=== PATIENT | female | born 1995 | race Caucasian/White ===

== ENCOUNTER 2016-06-26 10:18 | Emergency (ER) | payer MEDICAID ==
[~2016-06-26] VITALS: Wt 56.0 kg
[~2016-06-26 10:18] MED LIST: IBUP100T6 PO
[2016-06-26 11:26] LABS: ADD UMIC YES; URINE BILIRUBIN (Dip) NEGATIVE (NEGATIVE); URINE BLOOD (Dip) NEGATIVE (NEGATIVE); URINE COLOR LT. YELLOW (YELLOW); URINE GLUCOSE (Dip) NEGATIVE (NEGATIVE); URINE KETONES (Dip) TRACE (NEGATIVE); URINE LEUKOCYTE ESTERASE (Dip) TRACE (NEGATIVE); URINE NITRITE (Dip) NEGATIVE (NEGATIVE); URINE TOTAL PROTEIN (Dip) NEGATIVE (NEGATIVE); URINE UROBILINOGEN (Dip) 0.2 E.U./dL (0.1-1.0)
[2016-06-26 11:28] LABS: BASOPHILS % 0.4 % (0.0-2.0); EOSINOPHILS # 0.1 10^3/ul (0.0-0.5); EOSINOPHILS % 0.7 % (0.0-7.0); HEMATOCRIT 41.5 % (37.0-47.0); HEMOGLOBIN 14.1 g/dl (12.0-16.0); LYMPHOCYTES # 1.6 10^3/ul (0.8-2.9); LYMPHOCYTES % 21.1 % (18.0-55.0); MEAN CORPUSCULAR HEMOGLOBIN 30.3 pg (29.0-33.0); MEAN CORPUSCULAR HGB CONC 33.9 g/dl (32.0-37.0); MEAN CORPUSCULAR VOLUME 89.3 fl (72.0-104.0); MEAN PLATELET VOLUME 10.6 fl (7.4-10.4); MONOCYTE # 0.7 10^3/ul (0.3-0.9); MONOCYTES % 9.8 % (0.0-13.0); PLATELET COUNT 195 10^3/UL (140-440); RED BLOOD COUNT 4.65 10^6/ul (4.20-5.40); RED CELL DISTRIBUTION WIDTH 12.9 % (11.5-14.5); UNCORRECTED WBC 7.4 10^3/ul (4.8-10.8); WHITE BLOOD COUNT 7.4 10^3/ul (4.8-10.8)
[2016-06-26 11:29] LABS: CONDITION 1
--- NOTE | 2016-06-26 11:29 | ERD ---
ER Documentation Chief Complaint Date/Time DATE: 06/26/16 TIME: 11:26 Chief Complaint intermittent pelvic pain, 10wks preg HPI This is a 20-year-old female who presents to the emergency department today after being referred here by her [facility] for possible ectopic . Patient states she is approximately [address] Zacarias and stated that she had an ultrasound today and was told that she had a cyst and that could possibly be an ectopic . Denies any vaginal bleeding. Denies any fevers or chills. States she has mild intermittent pain. States she has some nausea but no vomiting. ROS All systems reviewed and are negative except as per history of present illness. Medications Home Meds Active Scripts Ondansetron Hcl* (Zofran*) 4 Mg Tablet, 4 MG PO Q6H for NAUSEA AND/OR VOMITING, #30 TAB Prov:MANUEL POE PA-C 06/26/16 Acetaminophen* (Tylophen*) 500 Mg Capsule, 1 CAP PO Q6H Y for PAIN AND OR ELEVATED TEMP, #30 CAP Prov:MANUEL POE PA-C 06/26/16 Reported Medications Ibuprofen (Advil) 100 Mg Tab.chew, 500 MG PO 12/22/11 Allergies Allergies: Coded Allergies: No Known Allergy (Unverified , 12/24/11) PMhx/Soc History of Surgery: Yes (APPENDIX) Anesthesia Reaction: No Hx Neurological Disorder: No Hx Respiratory Disorders: No Hx Cardiac Disorders: No Hx Psychiatric Problems: No Hx Miscellaneous Medical Probl: No Hx Alcohol Use: No Hx Substance Use: No Hx Tobacco Use: No Smoking Status: Never smoker Physical Exam Vitals Vital Signs Date Time Temp Pulse Resp B/P Pulse Ox O2 Delivery O2 Flow Rate FiO2 06/26/16 10:20 98.0 75 20 133/79 99 Physical Exam Const: NAD Head: Atraumatic Eyes: Normal Conjunctiva ENT: Normal External Ears, Nose and Mouth. Neck: Full range of motion..~ No meningismus. Resp: Clear to auscultation bilaterally Cardio: Regular rate and rhythm, no murmurs Abd: Soft, non tender, non distended. Normal bowel sounds. No right lower quadrant pain. No left lower quadrant pain. No tenderness at McBurney's Skin: No petechiae or rashes Neur: Awake and alert Psych: Normal Mood and Affect Result Diagram: 06/26/16 1100 Results 24 hrs Laboratory Tests Test 06/26/16 10:45 06/26/16 11:00 Urine Bacteria RARE Urine Bilirubin NEGATIVE Urine Clarity CLEAR Urine Color LT. YELLOW Urine Epithelial Cells FEW Urine Glucose NEGATIVE% Urine Hemoglobin NEGATIVE Urine Ketones TRACE Urine Leukocyte Esterase TRACE Urine Microscopic RBC 0-2/HPF Urine Microscopic WBC 0-2/HPF Urine Nitrite NEGATIVE Urine Specific Shirley 1.010 Urine Total Protein NEGATIVE Urine Urobilinogen 0.2 E.U./dL Urine pH 5.5 Basophils # 0.010^3/ul Basophils % 0.4% Beta HCG, Quantitative 166.7mIU/ml Blood Morphology Comment Eosinophils # 0.110^3/ul Eosinophils % 0.7% Hematocrit 41.5% Hemoglobin 14.1g/dl Lymphocytes # 1.610^3/ul Lymphocytes % 21.1% Mean Corpuscular Hemoglobin 30.3pg Mean Corpuscular Hemoglobin Concent 33.9g/dl Mean Corpuscular Volume 89.3fl Mean Platelet Volume 10.6fl Monocytes # 0.710^3/ul Monocytes % 9.8% Neutrophils # 5.010^3/ul Neutrophils % 68.0% Nucleated Red Blood Cells # 0.010^3/ul Nucleated Red Blood Cells % 0.0/100WBC Platelet Count 07905^3/UL Red Blood Count 4.6510^6/ul Red Cell Distribution Width 12.9% White Blood Count 7.410^3/ul DIAGNOSTIC IMAGING REPORT Patient: VENKAT CASTRO : 1995 Age: 20 Sex: F MR #: [id number] DOS: 06/26/16 1050 Ordering MD: MANUEL POE PA-C Location: [facility] Room/Bed: PROCEDURE: OB Ultrasound. CLINICAL INDICATION: Positive test. Pelvic pain. TECHNIQUE: Ultrasound of the pelvis was performed with transabdominal and transvaginal sonography in the axial and sagittal planes. COMPARISON: No prior study is available for comparison. FINDINGS: There is no intrauterine gestational sac. The uterus measures 7.7 x 4.2 x 5.8 cm. There is no uterine enlargement or mass. The endometrium is thickened measuring 23 mm. The right ovary measures 4.6 x 3.4 x 3.1 cm. There is a right ovarian hemorrhagic cyst measuring 3.5 x 2.3 x 3.4 cm. The left ovary appears normal measuring 3.1 x 1.5 x 1.8 cm. Color Doppler and pulsed Doppler sonography demonstrate normal flow to the ovaries. There is no other pelvic mass or free fluid. IMPRESSION: 1. No intrauterine gestational sac. If the patient has a positive test, ectopic gestation cannot be excluded. 2. Right ovarian hemorrhagic cyst measuring up to 3.5 cm. Follow-up ultrasound in 6 weeks is advised. 3. Otherwise unremarkable study. RPTAT: QQ .Prosper Partida MD, MD Date Time Electronically viewed and signed by .Prosper Partida MD, MD on 06/26/2016 12:10 .R/ CC: MANUEL POE PA-C Procedures/MDM This is a 20-year-old female who presents to the [facility] department today after being sent here by her clinic to rule out an ectopic . Patient states she is 10 weeks and 1 day I obtained a complete OB workup Laboratory work shows no elevated white blood cell count. She is not anemic. Platelets are within normal limits. UA shows trace leukocyte esterase. 0-2 white blood cells. Beta quant hCG 166.7 Rh status O+ Ultrasound shows no intrauterine gestational sac. There is a right ovarian hemorrhagic cyst measuring up to 3.5 cm. There is no pelvic mass or free fluid. There is normal flow to the ovaries. Patient symptoms at this time may be consistent with early versus failed versus ectopic . I have explained this to the patient. I discussed the patient with Dr. Dean given the patient's ultrasound and beta quant levels and he recommended that I place a call to Dr. Zacarias. This was done however my call was not returned as there was no answer at the clinic. I have explained this to the patient as well. I have explained to the patient that she should follow-up with them tomorrow in clinic with all of her paperwork and results from today's visit. I have explained to her that if she is not able to get in to see her doctor tomorrow that she needs to return to the emergency department in 48 hours for a recheck of her beta quant. Patient understood Patient declined pain medication or medication for nausea or vomiting here in the emergency department. I will give her a prescription for Tylenol and Zofran for home. I will not treat the patient's urinary tract infection for trace leukocyte esterase and no bacteria. At this time the patient is stable for discharge and outpatient management. Patient should follow up with their PCP in the next 1-2 days. They may return to the emergency department sooner for any persistent or worsening of symptoms. Patient understood and agreed with the plan. I discussed the patient with Dr. Dean and he is in agreement with the plan. Departure Diagnosis: Primary Impression: Encounter for laboratory test Additional Impression: Pelvic pain during Condition: MANUEL Goins PA-C Jun 26, 2016 11:29
[2016-06-26 11:46] LABS: BACTERIA,URINE RARE; URINE RBCS 0-2 /HPF (0)
--- NOTE | 2016-06-26 12:10 | RADRPT ---
PROCEDURE: OB Ultrasound. CLINICAL INDICATION: Positive test. Pelvic pain. TECHNIQUE: Ultrasound of the pelvis was performed with transabdominal and transvaginal sonography in the axial and sagittal planes. COMPARISON: No prior study is available for comparison. FINDINGS: There is no intrauterine gestational sac. The uterus measures 7.7 x 4.2 x 5.8 cm. There is no uter ine enlargement or mass. The endometrium is thickened measuring 23 mm. The right ovary measures 4.6 x 3.4 x 3.1 cm. There is a right ovarian hemorrhagic cyst measuring 3. 5 x 2.3 x 3.4 cm. The left ovary appears normal measuring 3.1 x 1.5 x 1.8 cm. Color Doppler and pulsed Doppler sonography demonstrate normal flow to the ovaries. There is no other pelvic mass or free fluid. IMPRESSION: 1. No intrauterine gestational sac. If the patient has a positive test, ectopic gestatio n cannot be excluded. 2. Right ovarian hemorrhagic cyst measuring up to 3.5 cm. Follow-up ultrasound in 6 weeks is advis ed. 3. Otherwise unremarkable study. RPTAT: QQ .Prosper Partida MD, Date Time Electronically viewed and signed by .Prosper Partida MD, on 06/26/2016 12:10 .R/
[2016-06-26] MEDS ORDERED: ACET500C5 PO (13:49)
[2016-06-26] MEDS ORDERED: ONDA4TAB8 PO (13:49)
== END 2016-06-26 14:01 | disposition home or self-care (01) ==
LOC: FTE 10:18
DX: O26.891 Other specified pregnancy related conditions, first trimester (principal); R10.2 Pelvic and perineal pain; Z3A.10 10 weeks gestation of pregnancy; Z00.00 Encounter for general adult medical examination without abnormal findings
CPT/HCPCS: 36415; 76801; 76817; 81001; 84702; 85025; 86900; 86901; Z7502; 81003

== ENCOUNTER 2017-02-26 18:09 | Outpatient (CLI) | payer MEDICAID ==
[~2017-02-26] VITALS: Ht 157.5 cm; Wt 78.2 kg
[~2017-02-26 18:09] MED LIST changes: +ACET500C5 PO; +ONDA4TAB8 PO
[2017-02-26 18:22] VITALS: Ht 157.5 cm; Wt 78.2 kg
[2017-02-26 18:23] VITALS: BP_SYST 118; PULSE 67
[2017-02-26] MEDS ORDERED: PREN-17 PO (18:24)
--- NOTE | 2017-02-26 19:04 | RADRPT ---
PROCEDURE: US OB biophysical profile. CLINICAL INDICATION: evaluation, spontaneous rupture of membranes TECHNIQUE: Multiple sonographic images of the pelvis were obtained. The images were reviewed on a PACS workstation. COMPARISON: No prior studies are available for comparison. FINDINGS: There is a single viable intrauterine gestation. Cardiac activity is present with 134 beats per min alicia. There is a vertex presentation. The placenta is anterior and left lateral in location. There is no evidence of placental abruption . There is a normal amount of amniotic fluid with an JENNIFER = 10.8 cm. Biophysical profile: movement 2/2 tone 2/2. breathing 2/2 JENNIFER 2/2 Total 12/16 RPTAT: AA . IMPRESSION: Normal biophysical profile. Physician Freddie Date Time Electronically viewed and signed by Physician Freddie on 02/26/2017 19:03 /
--- NOTE | 2017-02-26 21:04 | PN ---
Triage Information Date/Time February 26, 2017 Reason for visit: SROM Weeks of Gestation 39w 1d /Para 1/0 Hypertention: none Additional information PMHx: none. PSHx: none. NKDA. Objective Vital Signs Date Time Temp Pulse Resp B/P Pulse Ox O2 Delivery O2 Flow Rate FiO2 02/26/17 18:23 97.9 67 118/ Heart Rate: 130's Heart Rate Comments Accels to 150 bpm. No decels. Contractions: >10 Minutes Apart Exam 40%/FT/-2/ Results/Medications Results 24 hrs Laboratory Tests Test 02/26/17 19:00 Membranes Rupture NEGATIVE Imaging Results BPP 8/8 with an JENNIFER of 10.8 cm. VTX. Disposition: Discharge Assessment/Plan A:IUP at 39w 1d. False labor. Membranes intact. P: D/C home. Keep next appt 03/05 unless delivers. ANAND WALLER MD Feb 26, 2017 21:04
--- NOTE | 2017-02-26 21:36 | TRIAGE ---
OB Triage Datetime Report Generated by CPN: 02/26/2017 21:35 Datetime: 02/26/2017 18:59 Vaginal Exam Dilatation (cms): 0.5 Effacement (%): 40 Station: -2 Exam By: S NAVJOT Vaginal Bleeding: None Cervix, Consistency: Soft Cervix, Position: Posterior Presentation 'A': Cephalic Datetime: 02/26/2017 18:19 Stage of : OB Triage Assessment Type: Triage Maternal Assessment Level of Consciousness: Fully Conscious DTR's/Clonus: DTRs 2+; No Clonus Headache: Denies Blurred Vision: No Respiratory Effort: Unlabored; Regular Rhythm; Equal Expansion Breath Sounds, Left: Clear and Equal Breath Sounds, Right: Clear and Equal Nausea/Vomiting: Denies RUQ Epigastric Pain: Denies Facial Edema: None Temperature Route: Axillary Fall Risk Assessment History of Falling: (0) No Secondary Diagnosis: (0) No Ambulatory Aid: (0) Bedrest/Nurse Assist IV Therapy: (0) No Gait: (0) Normal/Bedrest/Immobile Mental Status: (0) Oriented to Own Ability Fall Score: 0 Fall Risk Score Definition: No Risk: No action required Labor Evaluation Frequency: 0 Monitor Mode: External Pattern: Normal: <= 5 Contractions in 10 Minutes Resting Tone [place]: Relaxed Heart Rate FHR Baseline Rate: 135 Monitor Mode: External US Variability: Moderate 6-25 bpm Accelerations: 10X10 Decelerations: None Category: Category I Pain Assessment Pain Scale: 0 Pain Presence: None/Denies Pain Type: N/A Pain Goal: 3 Pain Relief Measures: Comfort Measures Datetime: 02/26/2017 18:16 Time of Arrival: 02/26/2017 18:01 EGA: 39.1 Arrived By: Ambulatory Arrived From: Home Chief Complaint: C/O POSS SROM 2 DAYS AGO, DENIES BLEEDING OR UC'S Movement: Present Contractions: Denies/Absent Rupture of Membranes: Unsure Vaginal Bleeding: None Vaginal Discharge: Present Recent Sexual Intercouse: Denies Abdominal Trauma: Not Applicable Time Provider Notified: 02/26/2017 19:00 Provider Notified: Dr Acosta Initial Plan: MONITOR, ROM PLUS, NITRAZINE, BPP
== END 2017-02-26 21:05 | disposition home or self-care (01) ==
LOC: OBT 18:09 → L-D 18:10 → OBT 21:05
PROVIDERS: ATTEND Obstetrics & Gynecology
DX: O42.913 Preterm premature rupture of membranes, unspecified as to length of time between rupture and onset of labor, third trimester (principal); Z3A.39 39 weeks gestation of pregnancy
CPT/HCPCS: 76818; 84112; Z7500; G0463

== ENCOUNTER 2018-09-27 14:10 | Outpatient (CLI) | payer MEDICAID ==
[~2018-09-27] VITALS: Ht 157.5 cm; Wt 69.6 kg
[~2018-09-27 14:10] MED LIST changes: -ACET500C5 PO; -IBUP100T6 PO; -ONDA4TAB8 PO; +PREN-17 PO
[2018-09-27 14:28] VITALS: Ht 157.5 cm; Wt 69.6 kg
--- NOTE | 2018-09-27 15:44 | PN ---
Triage Information Date/Time Reason for visit: Patient here for shortness of breath headache palpitations and anxiety Weeks of Gestation Patient is a 22-year-old 2 para 1 at 23 weeks and 2 days of gestation with estimated date of delivery January 21, 2019 Patient with known history of panic attacks presents with chief complaint of shortness of breath headache palpitations and anxiety She reports positive movement, denies any vaginal bleeding or leaking fluid, denies any uterine contractions Blood pressure 121/73 Pulse 85 O2 sat 98% on room air /Para 2 para 1 Diabetes: none Hypertention: none Objective Heart Rate: 140's Heart Rate Comments heart rate tracing appropriate for gestational age Contractions: None Results/Medications Imaging Results PROCEDURE: Limited OB ultrasound CLINICAL INDICATION: Pain. TECHNIQUE: Limited transabdominal obstetrical sonographic evaluation was performed to assess the amniotic fluid volume. COMPARISON: None. FINDINGS: There is a single living intrauterine gestation with breech/variable presentation and fundal/posterior grade 1 placenta. heart rate is 148 beats per minute. Amniotic fluid maximal vertical pocket measures 7.3 cm. Amniotic fluid index was not measured on this examination. IMPRESSION: 1. Amniotic fluid maximal vertical pocket (MVP) measuring 7.3 cm, within normal limits. 2. Breech/variable presentation. RPTAT:HAJM Physician David Date Time Electronically viewed and signed by Physician David on 09/27/2018 16:14 RM/ CC: MISAEL DAVE MD [phone] Disposition: Discharge Assessment/Plan Patient was sent back down to the emergency department evaluation of her shortness of breath and palpitations MISAEL DAVE MD September 27, 2018 15:44
--- NOTE | 2018-09-27 16:22 | TRIAGE ---
OB Triage Datetime Report Generated by CPN: 09/27/2018 16:22 Datetime: 09/27/2018 16:20 Stage of : OB Triage Maternal Assessment Level of Consciousness: Fully Conscious DTR's/Clonus: DTRs 1+ Headache: Denies Nausea/Vomiting: Denies RUQ Epigastric Pain: Denies Labor Evaluation Frequency: NONE Monitor Mode: External Resting Tone [place]: Relaxed Heart Rate FHR Baseline Rate: 140 Monitor Mode: External US Variability: Moderate 6-25 bpm Accelerations: 15X15 Decelerations: None Category: Category I Pain Assessment Pain Scale: 0 Pain Presence: None/Denies Pain Type: N/A Pain Goal: 3 Vaginal Exam Membrane Status: Intact Datetime: 09/27/2018 15:50 Maternal Assessment Level of Consciousness: Fully Conscious DTR's/Clonus: DTRs 1+ Headache: Denies Blurred Vision: No Nausea/Vomiting: Denies RUQ Epigastric Pain: Denies Facial Edema: None Labor Evaluation Frequency: NONE Monitor Mode: External Resting Tone [place]: Relaxed Heart Rate FHR Baseline Rate: 140 Monitor Mode: External US Variability: Moderate 6-25 bpm Accelerations: 15X15 Decelerations: None Category: Category I Pain Assessment Pain Scale: 0 Pain Presence: None/Denies Pain Type: N/A Pain Goal: 3 Vaginal Exam Membrane Status: Intact Datetime: 09/27/2018 14:37 Assessment Type: Triage Maternal Assessment Level of Consciousness: Fully Conscious DTR's/Clonus: DTRs 2+; No Clonus Headache: Denies Blurred Vision: No Respiratory Effort: Unlabored; Regular Rhythm; Equal Expansion Breath Sounds, Left: Clear and Equal Breath Sounds, Right: Clear and Equal Nausea/Vomiting: Denies RUQ Epigastric Pain: Denies Facial Edema: None Fall Risk Assessment History of Falling: (0) No Secondary Diagnosis: (0) No Ambulatory Aid: (0) Bedrest/Nurse Assist IV Therapy: (0) No Gait: (0) Normal/Bedrest/Immobile Mental Status: (0) Oriented to Own Ability Fall Score: 0 Fall Risk Score Definition: No Risk: No action required Datetime: 09/27/2018 14:04 Time of Arrival: 09/27/2018 14:04 EGA: 23.3 Arrived By: Ambulatory Arrived From: Home Chief Complaint: PT CAME IN C/O SOB, CHEST PAIN, HEADACHE AND TACHYCARDIA AT THIS TIME Movement: Present Contractions: Denies/Absent Rupture of Membranes: Denies Vaginal Discharge: Denies Recent Sexual Intercouse: Denies Abdominal Trauma: Not Applicable Additional Patient Complaints: NONE Time Provider Notified: 09/27/2018 14:30 Provider Notified: JOLIE Initial Plan: JENNIFER SINGH
== END 2018-09-27 16:19 | disposition home or self-care (01) ==
LOC: OBT 14:10 → L-D 14:10 → OBT 16:19
PROVIDERS: ATTEND Obstetrics & Gynecology
DX: O26.892 Other specified pregnancy related conditions, second trimester (principal); R00.2 Palpitations; R06.02 Shortness of breath; Z3A.23 23 weeks gestation of pregnancy
CPT/HCPCS: 76815; Z7500; G0463

== ENCOUNTER 2018-09-27 16:28 | Emergency (ER) | payer MEDICAID ==
[~2018-09-27] VITALS: Ht 157.5 cm; Wt 69.4 kg
[2018-09-27 16:33] VITALS: Ht 157.5 cm; Wt 69.4 kg
--- NOTE | 2018-09-27 17:39 | ERD ---
ER Documentation Chief Complaint Chief Complaint feels sob with anxiety , 23 weeks preg , cleared by ob triage HPI Patient is a 22-year-old female with a history of panic attacks who presents with anxiety and panic attack. The patient said that she is under a lot of stress recently. She started with a migraine this morning and then started feeling anxious. She is 23 weeks . She initially went to OB triage and was cleared after having an evaluation for the baby. She felt like her heart was pounding. She has not taken any medications. She does have a primary doctor but does not remember the name of the OB doctor that she sees. ROS All systems reviewed and are negative except as per history of present illness. Medications Home Meds Reported Medications Vit No.78/Iron/FA (Prenatabs FA Tablet) 1 Each Tablet, 1 EACH PO, TAB 02/26/17 Allergies Allergies: Coded Allergies: No Known Allergy (Unverified , 12/24/11) PMhx/Soc History of Surgery: Yes (APPENDIX) Anesthesia Reaction: No Hx Neurological Disorder: No Hx Respiratory Disorders: No Hx Cardiac Disorders: No Hx Psychiatric Problems: No Hx Miscellaneous Medical Probl: No Hx Alcohol Use: No Hx Substance Use: No Hx Tobacco Use: No Smoking Status: Never smoker FmHx Family History: No diabetes Physical Exam Vitals Vital Signs Date Temp Pulse Resp B/P (MAP) Pulse Ox O2 O2 Flow FiO2 Time Delivery Rate 09/27/18 97.9 71 18 118/59 98 Room Air 17:46 (78) 09/27/18 98.1 86 18 123/80 99 16:33 (94) Physical Exam Const: No acute distress Head: Atraumatic Eyes: Normal Conjunctiva ENT: Normal External Ears, Nose and Mouth. Neck: Full range of motion. No meningismus. Resp: Clear to auscultation bilaterally Cardio: Regular rate and rhythm, no murmurs Abd: Soft, 23-week abdomen without pain Skin: No petechiae or rashes Back: No midline or flank tenderness Ext: No cyanosis, or edema Neur: Awake and alert Psych: Normal Mood and Affect Procedures/MDM EKG read by me: Rate/Rhythm: Regular rate and rhythm at a rate of 74 Intervals: Normal Impression: No evidence of ischemia or arrhythmia Patient is a 22-year-old female presents with palpitations and anxiety. Her EKG is normal without signs of ischemia or arrhythmia. I believe outpatient management is appropriate. I believe the patient is likely having a panic attack. I do not want to give her medications at this time as they may harm the baby and therefore cognitive behavioral therapy may be a better plan for her. She will need to follow-up with her primary doctor and her OB doctor. Departure Diagnosis: Primary Impression: Panic attack Condition: Fair Patient Instructions: Panic Attack Referrals: Your OB doctor Additional Instructions: Call your primary care doctor TOMORROW for an appointment during the next 1 WEEK.Tell the guidance secretary that you were referred from this facility.See the doctor sooner or return here if your condition worsens before your appointment time. KEILY JUÁREZ MD September 27, 2018 17:39
[2018-09-27 17:46] VITALS: BP 118/59; PULSE 71; RESP 18
== END 2018-09-27 17:47 | disposition home or self-care (01) ==
LOC: FTE 16:28
DX: O99.342 Other mental disorders complicating pregnancy, second trimester (principal); F41.0 Panic disorder [episodic paroxysmal anxiety]; Z3A.23 23 weeks gestation of pregnancy
CPT/HCPCS: 93005; Z7502

== ENCOUNTER 2019-01-08 12:21 | Inpatient (IN) | payer MEDICAID ==
[~2019-01-08] VITALS: Ht 157.5 cm; Wt 79.2 kg
[2019-01-08 13:10] VITALS: BP 138/86; PULSE 107; RESP 18; Ht 157.5 cm; Wt 79.2 kg
[2019-01-08] MEDS ORDERED: LIDOCAINE 1% (MPF) 30 ML INJ INJ PRN (17:00)
[2019-01-08] MEDS ORDERED: AMPICILLIN 2 GM/NS (PMX) 100 ML IV ONE (17:00)
[2019-01-08] MEDS ORDERED: MISOPROSTOL 200 MCG TAB PR PRN (17:00)
[2019-01-08] MEDS ORDERED: CARBOPROST 250 MCG INJ IM PRN (17:00)
[2019-01-08] MEDS ORDERED: OXYTOCIN 30 UNITS/LR 500 ML IV SCH ×2 (17:00)
[2019-01-08] MEDS ORDERED: OXYTOCIN 30 UNITS/LR 500 ML IV PRN (17:00)
[2019-01-08] MEDS ORDERED: BUTORPHANOL 2 MG INJ IV PRN ×2 (17:00)
[2019-01-08] MEDS ORDERED: METHYLERGONOVINE 0.2 MG INJ IM PRN (17:00)
[2019-01-08] MEDS: LACTATED RINGER'S 1,000 ML IV SCH (18:23)
[2019-01-08] MEDS: OXYTOCIN 30 UNITS/LR 500 ML IV SCH (18:32)
[2019-01-08] MEDS: AMPICILLIN 1 GM/NS (PMX) 50 ML IV SCH (21:52)
[2019-01-09] MEDS: LACTATED RINGER'S 1,000 ML IV SCH ×3 (00:41→20:18)
[2019-01-09] MEDS: AMPICILLIN 1 GM/NS (PMX) 50 ML IV SCH ×6 (00:42→21:09)
[2019-01-09] MEDS ORDERED: LACTATED RINGER'S 1,000 ML IV PRN (11:29)
[2019-01-09] MEDS ORDERED: FENTAnyl 2MCG/ML-ROPIV 0.2% 100 ML ONE (12:23)
[2019-01-09] MEDS: OXYTOCIN 30 UNITS/LR 500 ML IV SCH (17:12)
[2019-01-09] MEDS ORDERED: NALOXONE (0.4 MG/ML) INJ IV PRN (20:00)
[2019-01-09] MEDS ORDERED: FENTAnyl 2MCG/ML-ROPIV 0.2% 100 ML BAG EPI SCH (20:00)
[2019-01-09] MEDS ORDERED: ONDANSETRON 4 MG INJ IV PRN (20:00)
[2019-01-10] VITALS (7 sets, daily range): BP systolic 112–134; BP diastolic 62–81; PULSE 79–102; RESP 16–19
[2019-01-10] MEDS: LACTATED RINGER'S 1,000 ML IV SCH ×2 (00:56→16:56)
[2019-01-10] MEDS: AMPICILLIN 1 GM/NS (PMX) 50 ML IV SCH ×2 (01:02→05:00)
[2019-01-10] MEDS: LACTATED RINGER'S 1,000 ML IV* SCH ×2 (04:50→20:50)
[2019-01-10] MEDS ORDERED: OXYTOCIN 30 UNITS/LR 500 ML IV SCH (04:50)
[2019-01-10] MEDS ORDERED: ONDANSETRON 4 MG INJ IV PRN (05:00)
[2019-01-10] MEDS ORDERED: DIBUCAINE 1% 30 GM OINT TOP PRN (05:00)
[2019-01-10] MEDS ORDERED: LANOLIN HPA 1 PKT TOP PRN (05:00)
[2019-01-10] MEDS ORDERED: ACETAMINOPHEN 325 MG TAB PO PRN ×2 (05:00)
[2019-01-10] MEDS ORDERED: BENZOCAINE 20% 56 ML SPRAY TOP PRN (05:00)
[2019-01-10] MEDS ORDERED: CARBOPROST 250 MCG INJ IM PRN (05:00)
[2019-01-10] MEDS ORDERED: MISOPROSTOL 200 MCG TAB PR PRN (05:00)
[2019-01-10] MEDS ORDERED: OXYTOCIN 30 UNITS/LR 500 ML IV PRN (05:00)
[2019-01-10] MEDS ORDERED: METHYLERGONOVINE 0.2 MG INJ IM PRN (05:00)
[2019-01-10] MEDS ORDERED: WITCH HAZEL/GLYCERIN PAD PR PRN (05:00)
[2019-01-10] MEDS: SENNA/DOCUSATE NA (8.6MG/50MG) TAB PO PRN (07:54)
[2019-01-10] MEDS: MAGNESIUM HYDROXIDE 30ML CUP PO PRN (07:54)
[2019-01-10] MEDS: IBUPROFEN 600 MG TAB PO PRN ×2 (07:54→17:52)
[2019-01-11] MEDS: LACTATED RINGER'S 1,000 ML IV SCH (00:56)
[2019-01-11] MEDS: IBUPROFEN 600 MG TAB PO PRN ×2 (01:12→18:07)
[2019-01-11 04:35] VITALS: BP 118/78; PULSE 82; RESP 16
[2019-01-11] MEDS: LACTATED RINGER'S 1,000 ML IV* SCH ×3 (04:50→20:43)
[2019-01-11 08:06] VITALS: BP 115/83; PULSE 77; RESP 18
[2019-01-11] MEDS: SENNA/DOCUSATE NA (8.6MG/50MG) TAB PO PRN ×2 (09:50→21:47)
[2019-01-11] MEDS: MAGNESIUM HYDROXIDE 30ML CUP PO PRN (09:50)
[2019-01-11 15:55] VITALS: BP 122/69; PULSE 80; RESP 17
[2019-01-11 20:00] VITALS: BP 117/73; PULSE 74; RESP 16
[2019-01-12 04:00] VITALS: BP 101/61; PULSE 80; RESP 18
[2019-01-12] MEDS: LACTATED RINGER'S 1,000 ML IV* SCH (04:50)
[2019-01-12 07:30] VITALS: BP 117/70; PULSE 79; RESP 18
[2019-01-12] MEDS: IBUPROFEN 600 MG TAB PO PRN (15:27)
== END 2019-01-12 18:00 | disposition home or self-care (01) | DRG 807 ==
LOC: OBT 12:21 → L-D 12:21 → OBT 16:55 → L-D 18:20 → MS1 01-10 06:05
PROVIDERS: ADMIT Obstetrics & Gynecology; ATTEND Obstetrics & Gynecology
PROC: 10E0XZZ Delivery of Products of Conception, External Approach (ICD-10-PCS; principal; 2019-01-10)
PROC: 0W8NXZZ Division of Female Perineum, External Approach (ICD-10-PCS; 2019-01-10)
DX: O80 Encounter for full-term uncomplicated delivery (principal); Z37.0 Single live birth; Z3A.38 38 weeks gestation of pregnancy
CPT/HCPCS: 62322; 76818; 80053; 80307; 85025; 85610; 85730; 86592; 86703; 86803; 86850; 86900; 86901; 87340; 99464; G0463; J0290; J0595; J2590; J3010; J7120